=== PATIENT | male | born 1975 | race Caucasian/White ===

== ENCOUNTER 2023-12-01 00:08 | Emergency (ER) | payer BC, SELFPAY ==
[2023-12-01 00:17] VITALS: BP 174/102
--- NOTE | 2023-12-01 02:01 | ED.GENMED ---
History of Present Illness
General
Chief Complaint: Ear Problem
Source: patient
Exam Limitations: none
Time Seen by Provider: 12/01/23 01:27
Travel History
Have you had any contact with someone who has COVID-19?: No
Do you have any symptoms of coronavirus? Fever > 100 degrees, chills, cough, shortness of breath, sore throat, loss of taste or smell, muscle aches, or headache?: No
History of Present Illness
History of Present Illness:
This is a 48 year old male that comes in with c/o right ear pain. States that he has had sinus issues going on and he felt he had a sinus infection. States that about 6 pm last evening he started feel like his head was full so much that is was
going to pop. States that he went to bed an he was awakened with right ear pain. States that he felt he couldn't make it till morning. States that he has had a cough and a headache. Denies any fever, chills, chest pain, SOB, abd pain, nausea,
vomiting, diarrhea, dizziness.
Past History
Past History
ED Past Medical History: Hypercholesterolemia and Other (Seasonal allergies, Back pain)
ED Past Surgical History: Other (wisdom teeth extraction)
Social History
Tobacco: Non-smoker
Alcohol: Occasional
Personal:
Living: with family
Employment: Employed
Review of Systems
Review of Systems
All Other Systems: ROS reviewed and negative except as documented in HPI and ROS
Constitutional: Reports no symptoms; Denies fever or chills
EENT: Reports other (Right ear pain)
Respiratory: Reports cough; Denies trouble breathing
Cardiac: Reports no symptoms; Denies chest pain
ABD/GI: Denies abdominal pain, nausea, vomiting or diarrhea
: Reports no symptoms; Denies dysuria, frequency or urgency
Musculoskeletal: Reports no symptoms
Skin: Reports no symptoms
Neurological: Reports headache; Denies dizzy
Psychiatric: Reports no symptoms
Phy Exam
General Physical Exam
General Presentation: well appearing and no apparent distress
General age: appears stated age
General Skin: warm and dry
General Habitus: normal
General Mental: alert
General Hydration: appears well hydrated
ENT Exam
ENT Exam: pharynx normal, neck supple and other (Right Tm slightly erythemic)
Eye Exam
Eye Exam: EOMI
Cardiovascular Exam
Cardiovascular Exam: regular rate/rhythm and no murmur
Skin Exam
Skin Exam: normal color, warm/dry, no rash and no petechia
Psychiatric Exam
Psychiatric Exam: normal mood/affect
Course
Orders/Labs/Results
Orders:
Orders
12/01/23 02:01
Azithromycin [Zithromax] 500 mg PO NOW STA
Vital Signs
Initial and Last Documented VS:
Initial Vital Signs
Temp Pulse Resp BP Pulse Ox
98.9 F 104 24 174/102 98
12/01/23 00:17 12/01/23 00:17 12/01/23 00:17 12/01/23 00:17 12/01/23 00:17
Last Documented Vital Signs
Temp Pulse Resp BP Pulse Ox
98.9 F 104 24 174/102 98
12/01/23 00:17 12/01/23 00:17 12/01/23 00:17 12/01/23 00:17 12/01/23 00:17
MDM/Problems Addressed
Differential Diagnosis Includes:
Right TM infection, Sinus infection
MDM/Problems Addressed:
This is a 48 year old male that comes in with c/o right ear pain. States that he has been feeling like he had a sinus infection and tonight he started with right ear pain.
Explained to patient that the Ear is slightly red. Will place on Z-pack due to allergies. Patient to increase his water intake to 8-8oz glasses daily. Explained that he can also use Sudafed to help dry up the secretions. Patient to follow up with
the Family doctor. Return with any concerns.
Chronic conditions affecting care:
NA
Acute Exacerbation and/or Progression of Chronic Illness:
NA
*Pulse Oximetry
Patient hypoxic: no
*EKG
Interpreted by ED Provider?: NA
Rate: EKG- N/A
*Sanitation Officer Interpretation
Rate: Sanitation Officer- N/A
*Critical Care Note
Total Time (30-74mins, 75-104mins- exclusive of procedures): Not Applicable
ED Attending Note
-
Portions of this chart may have been created with voice recognition software.� Occasional wrong word or��sound alike� substitutions may have occurred due to the inherent limitations of voice recognition software.
Discharge Plan
Departure
Patient Disposition: Home (Routine Discharge)
Date of Disposition: 12/01/23
Time of Disposition: 02:11
Patient with high blood pressure during this ER visit?: Yes
Condition: Good
Covid-19: Not Applicable
Discharge Problem:
Otitis media
Instructions: Ear Infections (Otitis Media) in Adults (DC), BLOOD PRESSURE
Prescriptions:
New
azithromycin [Zithromax] 250 mg tablet
250 mg PO DAILY Qty: 4 0RF
No Action
ibuprofen [Advil] 200 MG tablet
400 mg PO PRN PRN (Reason: pain)
multivit with min-folic acid [One-A-Day Men VitaCraves] 200 MCG tablet,chewable
2 tab PO DAILY
Referrals:
Jaxson Blackburn MD [Family Provider] - Call in 1-3 days for appt
Activity Restrictions/Additional Instructions:
As discussed, you have been given your first dose of antibiotic here and a prescription has been sent to your Pharmacy. Please increase your water intake to 8-8oz glasses daily. You may also use Sudafed to help dry up any secretions. Follow up with
the family doctor for recheck. Continue with Ibuprofen 600mg every 6 hours with food for pain and Tylenol 1000mg every 6 hours for pain. IF YOU HAVE ANY OTHER CONCERNS PLEASE RETURN TO THE EMERGENCY ROOM.
Interventions
Interventions:
*Risk Screen - Suicide Last Done: 12/01/23 00:17
*Neglect/Abuse Screening Last Done: 12/01/23 00:17
ED- Fall Risk Assessment Last Done: 12/01/23 01:33
Discharge Date and Time
Print Language: J[place]
[2023-12-01 02:06] VITALS: BP 130/87
[2023-12-01] MEDS: ZITHROMAX 500 MG PO (02:07)
[2023-12-01] MEDS: TYLENOL 1000 MG PO (02:09)
== END 2023-12-01 02:22 | disposition home or self-care (01) ==
LOC: EMR 00:08
PROVIDERS: EMERGENCY PHYSICIAN Emergency Medicine; FAMILY PHYSICIAN Family Medicine
DX: H66.91 Otitis media, unspecified, right ear (principal); R03.0 Elevated blood-pressure reading, without diagnosis of hypertension
CPT/HCPCS: 99283

== ENCOUNTER 2025-03-07 23:30 | Emergency (ER) | payer BC, SELFPAY ==
[2025-03-07 23:33] VITALS: BP 138/102
--- NOTE | 2025-03-07 23:55 | ED.GENMED ---
History of Present Illness
General
Chief Complaint: Allergic Reaction
Source: patient and family
Exam Limitations: none
Time Seen by Provider: 03/07/25 23:47
Nursing documentation reviewed up to this point in time: agreed with
History of Present Illness
History of Present Illness:
Note:
CHIEF COMPLAINT(S)
Rash and wheezing after eating cherries.
HISTORY OF PRESENT ILLNESS
The patient is a 50-year-old male who presented with the onset of symptoms occurring after consuming cherries. The patient described the symptoms as a rash and wheezing. The wheezing was characterized as more of an effort to inhale and exhale rather
than an issue with swallowing. The patient denied any known allergy to cherries or other related foods and noted that they had consumed cherries in the past without any adverse reactions. There was no alcohol consumption preceding the episode. The
patient self-medicated with ibuprofen. The patient reported to their spouse a feeling of worsening symptoms.
REVIEW OF SYSTEMS
- Respiratory: Wheezing, described as increased effort in breathing.
- Dermatologic: Rash post-lopez consumption.
PHYSICAL EXAM
General: Alert, no acute distress.
Skin: Warm, dry. Rash present.
Head: Normocephalic, atraumatic.
Neck: Supple, trachea midline.
Eyes, Ears, Nose, and Throat: Oral mucosa moist.
Cardiovascular: Normal peripheral perfusion, no edema.
Respiratory: Respirations are non-labored, no audible wheezing noted.
Gastrointestinal: Abdomen nondistended.
Back: Normal range of motion, normal alignment.
Musculoskeletal: Normal range of motion, normal strength.
Neurological: Alert and oriented to person, place, time, and situation, no focal neurological deficit observed.
Psychiatric: Cooperative, appropriate mood & affect.
PLAN
- Administer antihistamines to address the rash and potential allergic reaction.
- Monitor respiratory status for any progression of wheezing.
- Educate the patient on avoiding cherries until further evaluation.
DIFFERENTIAL DIAGNOSIS
The Differential Diagnosis includes, in no particular order and is not limited to:
1. Food allergy (e.g., cherries)
2. Anaphylaxis
3. Asthma exacerbation
4. Jji-edmu-zhkjmjv allergic reaction
5. Exercise-induced bronchospasm
6. Environmental allergy
7. Infectious respiratory process
8. GERD with aspiration
9. Drug-induced wheezing
10. Cardiac-related wheezing
Past History
Past History
ED Past Medical History: Hypercholesterolemia and Other (Seasonal allergies, Back pain)
ED Past Surgical History: Other (wisdom teeth extraction)
Social History
Tobacco: Non-smoker
Alcohol: Occasional
Personal:
Living: with family
Employment: Employed
Review of Systems
Review of Systems
Allergies reviewed?: Yes
Other source history: family
All Other Systems: ROS reviewed and negative except as documented in HPI and ROS
Respiratory: Reports other (trouble getting air in)
Skin: Reports rash
Psychiatric: Reports anxiety
Phy Exam
Physical Exam
Physical Exam:
.
General Physical Exam
General Presentation: well appearing and no apparent distress
General Skin: warm and dry
General Habitus: normal
General Mental: alert
General Hydration: appears well hydrated
ENT Exam
ENT Exam: EOMI, pharynx normal, neck supple and normocephalic
Eye Exam
Eye Exam: PERRL, cornea clear and conjunctiva normal
Cardiovascular Exam
Cardiovascular Exam: regular rate/rhythm, no edema, no murmur and normal peripheral pulses
Pulmonary Exam
Pulmonary Exam: lungs clear, no respiratory distress, no rales, no crackles, no rhonchi, no stridor, no wheezing and no cough
Gastrointestinal Exam
Gastrointestinal Exam: normal bowel sounds, non tender, soft, no organomegaly, no pulsatile mass and non distended
Neurological Exam
Neurological Exam: alert, oriented x3, no motor deficits and speech normal
Musculoskeletal Exam
Musculoskeletal Exam: full ROM and no edema
Skin Exam
Skin Exam: no petechia and erythema
Psychiatric Exam
Psychiatric Exam: normal mood/affect
Course
Orders/Labs/Results
Orders:
Orders
03/07/25 23:54
Dexamethasone Pf [Decadron] 10 mg PO NOW STA
Diphenhydramine [Benadryl] 50 mg PO NOW STA
Famotidine [Pepcid] 40 mg PO NOW STA
Vital Signs
Initial and Last Documented VS:
Initial Vital Signs
Temp Pulse Resp BP Pulse Ox
98.6 F 103 20 138/102 99
03/07/25 23:33 03/07/25 23:33 03/07/25 23:33 03/07/25 23:33 03/07/25 23:33
Last Documented Vital Signs
Temp Pulse Resp BP Pulse Ox
98.6 F 78 18 121/56 95
03/07/25 23:33 03/08/25 00:15 03/08/25 00:15 03/08/25 00:00 03/08/25 00:15
*Pulse Oximetry
SaO2: 98
Oxygen Mode of Delivery: Room air
Patient hypoxic: no
*Critical Care Note
Total Time (30-74mins, 75-104mins- exclusive of procedures): Not Applicable
Update Note
Update Note:
The patient is a 50-year-old male who presented to the emergency department with symptoms of an allergic reaction after eating cherries. He experienced a rash and wheezing with a sensation of scratching in his throat. The patient had no difficulty
breathing. In the emergency department, he was treated with diphenhydramine, dexamethasone, and famotidine to address the allergic reaction symptoms.
The patient was educated on using an EpiPen if similar symptoms occur. Avoidance of cherries and monitoring for future reactions were discussed. Advised follow-up with an table tender for comprehensive allergy testing and management.
The patient should follow up with an table tender.
The patient received diphenhydramine, dexamethasone, and famotidine during the visit. He was prescribed an EpiPen upon discharge.
-Complexity of Data Reviewed:
Chronic conditions affecting care: None mentioned.
Differential diagnosis considered: Food allergy (e.g., cherries), anaphylaxis, asthma exacerbation, [id number]-[id number] allergic reaction, exercise-induced bronchospasm, environmental allergy, infectious respiratory process, GERD with aspiration,
drug-induced wheezing, cardiac-related wheezing.
-Data:
-Risk:
Prescription medication was prescribed: The patient was provided with an EpiPen for emergency use in case of future allergic reactions.
Allergic reaction to cherries suspected - ICD-10 T78.1 (Other adverse food reactions, not elsewhere classified)
ED Attending Note
-
Portions of this chart may have been created with voice recognition software.� Occasional wrong word or��sound alike� substitutions may have occurred due to the inherent limitations of voice recognition software.
Discharge Plan
Departure
Patient Disposition: Home (Routine Discharge)
Date of Disposition: 03/08/25
Time of Disposition: 00:35
Patient with high blood pressure during this ER visit?: Yes
Condition: Good
Discharge Problem:
Allergic reaction
Instructions: Food allergy, Allergic reaction - ED discharge instructions, BLOOD PRESSURE
Prescriptions:
New
diphenhydramine HCl [Benadryl] 25 mg capsule
25 mg PO TID PRN (Reason: allergy symptoms) Qty: 14 0RF
epinephrine [EpiPen] 0.3 mg/0.3 mL Auto-Injector
0.3 mg IM .STAT PRN (Reason: anaphylaxis) Qty: 1 0RF
prednisone 50 mg Tablet
50 mg PO DAILY Qty: 4 0RF
famotidine [Pepcid] 40 mg tablet
40 mg PO DAILY Qty: 7 0RF
No Action
ibuprofen [Advil] 200 MG tablet
400 mg PO PRN PRN (Reason: pain)
multivit with min-folic acid [One-A-Day Men VitaCraves] 200 MCG tablet,chewable
2 tab PO DAILY
azithromycin [Zithromax] 250 mg tablet
250 mg PO DAILY Qty: 4 0RF
Referrals:
Sera Tijerina MD [Consulting Staff, [facility]] - Call in 1-3 days for appt
Eliot Headley MD [Family Provider, Internal Medicine]
Activity Restrictions/Additional Instructions:
Thank You for choosing [facility].
It was a pleasure meeting you and taking part in your care. We hope for your continued healing and wellness.
Please read discharge instructions in their entirety. However, they are for general education and may not describe your exact diagnosis at discharge. Information on your ER visit and medical conditions were discussed with you along with appropriate
follow up information...
If indicated, please take your medications as instructed and indicated on discharge paperwork.
Please schedule a follow up appointment as directed. Call to schedule an appointment
Please return to the emergency department with ANY change in, persisting, or worsening of symptoms. If any of your symptoms do not improve, or persist, or become more severe within 6-12 hours, please return to the emergency department for further
care.
Please return to the emergency department if you develop a headache, neck pain/stiffness, fever greater than 100.4F, chest pain, shortness of breath, persistent nausea, vomiting, slurred speech, difficulty walking, numbness/tingling, weakness, signs
of infection or any other symptoms that are worrisome to you.
If you have any questions or concerns please do not hesitate to call the Hospital at or E-mail me directly at [email or web address]
Interventions
Interventions:
*Risk Screen - Suicide Last Done: 03/07/25 23:33
ED- Cardiac Assessment Last Done: 03/07/25 23:53
ED- Pulmonary Assessment Last Done: 03/07/25 23:53
ED-Skin Assessment Last Done: 03/07/25 23:53
Discharge Date and Time
Print Language: NEPALI
[2025-03-08] VITALS: BP 121/56
[2025-03-08] MEDS: DECADRON 10 MG PO
[2025-03-08] MEDS: PEPCID 40 MG PO (00:01)
[2025-03-08] MEDS: BENADRYL 50 MG PO (00:01)
== END 2025-03-08 00:57 | disposition home or self-care (01) ==
LOC: EMR 23:30
PROVIDERS: EMERGENCY PHYSICIAN Student in an Organized Health Care Education/Training Program; FAMILY PHYSICIAN Internal Medicine
DX: T78.1XXA Other adverse food reactions, not elsewhere classified, initial encounter (principal); R06.2 Wheezing; R21 Rash and other nonspecific skin eruption; R03.0 Elevated blood-pressure reading, without diagnosis of hypertension; E78.00 Pure hypercholesterolemia, unspecified; G47.30 Sleep apnea, unspecified; Z88.1 Allergy status to other antibiotic agents; Z91.048 Other nonmedicinal substance allergy status
CPT/HCPCS: 99283